=== PATIENT | male | born 1985 | race Caucasian/White ===

== ENCOUNTER 2019-06-28 18:09 | Emergency (ER) | payer OTHER, SELFPAY ==
--- NOTE | ~2019-06-28 | XR_ITS ---
EXAMINATION: XR chest 2V DATE: 06/28/2019 18:57 INDICATION: Shortness of breath and nausea post overdose TECHNIQUE: frontal and lateral views of the chest were obtained. COMPARISON: Chest radiograph dated 03/27/2015 FINDINGS: The lungs remain clear with no focal airspace opacities, pulmonary edema, pleural effusion or pneumot horax. The cardiomediastinal silhouette is normal. Mild thoracic spondylosis. IMPRESSION: 1. No acute cardiopulmonary disease. Reviewed, dictated and finalized at location A. [facility]
--- NOTE | 2019-06-28 18:12 | ED.OVERDOSE ---
HPI - Overdose General Chief Complaint: Unspecified Stated Complaint: POSS OD Time Seen by Provider: 06/28/19 18:10 Source: patient, EMS and RN notes reviewed Mode of arrival: EMS Limitations: other (pt is uncooperative) History of Present Illness HPI Narrative: Pt is a 33 y/o male with a Hx of opiate abuse, who presents to the ED via EMS with c/o possible overdose happening this evening. He notes that he doesn't remember where he was or what he was using this evening. According to EMS, the pt was found unresponsive in his home with methamphetamine, marijuana, and possibly heroin surrounding him. EMS notes that the pt received a total of 3 mg of Narcan while in route to the ED, stating that the pt became more responsive after the medication. He currently reports soreness in his chest, which is likely secondary to EMS sternal rubbing him. Pt denies any SOB or other symptoms. HPI limited due to the pt being uncooperative. MD complaint: other (Possible overdose) Intent: unknown Context: Accidental Overdose: uncertain what happened Associated symptoms: other (soreness in chest) Treatments Prior to Arrival: narcan (3 mg) Related Data Home Medications Medication Instructions Recorded Confirmed No Home Medications 06/28/19 06/28/19 Allergies Allergy/AdvReac Type Severity Reaction Status Date / Time Cephalosporins Allergy Unknown HIVES Unverified 03/27/15 19:44 Review of Systems Review of Systems: Narrative: ROS limited due to the pt being uncooperative. Cardiovascular: Cardiovascular: Reports other (soreness in chest) Respiratory: Respiratory: Denies dyspnea PMFSH Past Medical History Medical History GERD (gastroesophageal reflux disease) Kidney stones Surgical History Surgical History No significant past surgical history Social History Social History Smoking status: Smoker, status unknown Tobacco type: e-cigarettes Substance use type: marijuana and opiates Exam Narrative: Exam Narrative: GENERAL: Well-appearing, well-nourished, and in no acute distress. HEAD: Normocephalic, atraumatic. ENT: Mucous membranes moist. CHEST: Clear to auscultation. No respiratory distress. HEART: Regular rate and rhythm. Normal peripheral pulses. ABDOMEN: Soft, nontender, nondistended. EXTREMITIES: Normal range of motion. No edema. SKIN: Warm, dry, no rash. NEURO: Alert and oriented x3. PSYCH: Normal mood and affect. Course Course Emergency Course: Unremarkable evaluation. Tachycardia improved with IV fluid. No hypoxia. Tolerating oral intake. Not particularly willing to divulge details what occurred this evening but certainly feel he suffered an opiate overdose. Family present and he will be discharged home. Vital Signs Vital signs: Vital Signs Temperature 96.6 F L 06/28/19 18:13 Pulse Rate 104 H 06/28/19 18:13 Respiratory Rate 16 06/28/19 18:13 Blood Pressure 121/76 06/28/19 18:13 Pulse Oximetry 92 06/28/19 18:13 Temperature 96.6 F L 06/28/19 18:13 Pulse Rate 112 H 06/28/19 19:16 Respiratory Rate 18 06/28/19 19:16 Blood Pressure 113/87 06/28/19 19:16 Pulse Oximetry 97 06/28/19 19:16 MDM - Overdose Lab Data Result diagrams: 06/28/19 19:06 06/28/19 19:06 Labs: Lab Results 06/28/19 06/28/19 Range/Units 19:06 19:06 WBC 9.3 (4.5-10.0) K/mm3 RBC 5.34 (4.6-6.20) M/mm3 Hgb 16.7 (14.0-18.0) g/dL Hct 48.2 (42.0-52.0) % MCV 90.3 (80-100) fl MCH 31.3 (26-34) pg MCHC 34.6 (32-36) g/dl RDW 12.8 (11.5-14.5) % Plt Count 274 (150-375) k/mm3 MPV 9.1 (7.4-10.4) fl Immature Gran % (Auto) 0.3 (0-0.5) % Neut % (Auto) 82.5 H (45.5-73.1) % Lymph % (Auto) 10.7 L (18.3-44.2) % Benson % (Auto) 5.7 (2.6-8.5) % Eos % (Auto) 0.4 (0-4.4) % Baso % (Auto) 0.
[2019-06-28 18:13] VITALS: BP 121/76; PULSE 104; RESP 16; TEMP 35.9; O2SAT 92
[2019-06-28 19:02] VITALS: BP 103/69; PULSE 101; RESP 10; O2SAT 92
[2019-06-28] MEDS: SODIUM CHLORIDE 0.9% IV 1,000 ML 999 ML IV CONT (19:04)
[2019-06-28 19:12] LABS: Basophils Percent Auto 0.4 % (0.2-1.2); Eosinophils Percent Auto 0.4 % (0-4.4); Hematocrit 48.2 % (42.0-52.0); Hemoglobin 16.7 g/dL (14.0-18.0); Immature Granulocyte Absolute 0.03 K/mm3 (0.00-0.031); Immature Granulocyte Percent A 0.3 % (0-0.5); Lymphocytes Absolute Auto 0.99 K/mm3 (0.9-3.2); Lymphocytes Percent Auto 10.7 % (18.3-44.2); Mean Corpuscular HGB Conc 34.6 g/dl (32-36); Mean Corpuscular Hemoglobin 31.3 pg (26-34); Mean Corpuscular Volume 90.3 fl (80-100); Mean Platelet Volume 9.1 fl (7.4-10.4); Monocytes Absolute Auto 0.5 K/mm3 (0.1-0.6); Monocytes Percent Auto 5.7 % (2.6-8.5); Neutrophils Absolute Auto 7.6 K/mm3 (1.3-6.7); Neutrophils Percent Auto 82.5 % (45.5-73.1); Platelet Count Result 274 k/mm3 (150-375); Red Blood Count 5.34 M/mm3 (4.6-6.20); Red Cell Distribution Width 12.8 % (11.5-14.5); White Blood Count 9.3 K/mm3 (4.5-10.0)
[2019-06-28 19:16] VITALS: BP 113/87; PULSE 112; RESP 18; O2SAT 97
--- NOTE | 2019-06-28 19:17 | PC.NURSE ---
assuming care of pt at this time. received report from octavio wayne.
[2019-06-28 19:21] LABS: Blood Urea Nitrogen 18 mg/dL (9-20); Calcium 9.5 mg/dL (8.4-10.2); Carbon Dioxide 25 mmol/L (22-30); Chloride 100 mmol/L (98-107); Estimated Glomerular Filt Rate 59; Glucose 66 mg/dL (75-110); Potassium 3.9 mmol/L (3.4-5.0); Sodium 139 mmol/L (137-145)
[2019-06-28 20:00] VITALS: BP 99/74; PULSE 89; RESP 12; O2SAT 94
[2019-06-28 20:46] VITALS: BP 103/64; PULSE 95; RESP 12; O2SAT 97
[2019-06-28 21:29] VITALS: BP 109/73; PULSE 90; RESP 16; O2SAT 99
== END 2019-06-28 21:32 | disposition home or self-care (01) ==
PROVIDERS: Emergency Provider Emergency Medicine; PCP Internal Medicine
DX: T40.601A Poisoning by unspecified narcotics, accidental (unintentional), initial encounter (principal); F17.290 Nicotine dependence, other tobacco product, uncomplicated; K21.9 Gastro-esophageal reflux disease without esophagitis; Z87.442 Personal history of urinary calculi
CPT/HCPCS: 36415; 71046; 80048; 85025; 96360; 99283; J2405; J7030